=== PATIENT | female | born 1985 | race Two or more races ===

== ENCOUNTER 2018-09-07 03:31 | Emergency (ER) | payer MEDICAID ==
[~2018-09-07] VITALS: Ht 157.5 cm; Wt 72.6 kg
--- NOTE | 2018-09-07 03:50 | Emergency Room Report ---
History of Present Illness General Chief Complaint: Female Urogenital Problems Present Illness HPI Patient is a 32-year-old female presented after increased dysuria and urgency of urination. Patient reports having prior history of rheumatoid arthritis. She reports having increased burning sensation which appears. She denies any fever. She had denies any the diarrhea. She reports having some suprapubic abdominal pain. The patient said she is taking methotrexate for rheumatoid arthritis. She reports having previously normal blood counts. Allergies: Coded Allergies: PENICILLINS (Verified Adverse Reaction, Severe, Shortness of Breath, 09/07) Patient History Past Medical History: see triage record Last Menstrual Period: 08/23/18 Now: No : 2 Para: 2 Reviewed Nursing Documentation: PMH: Agreed; PSxH: Agreed Review of Systems All Other Systems: negative except mentioned in HPI Physical Exam Vital Signs Date Time Temp Pulse Resp B/P (MAP) Pulse Ox O2 Delivery O2 Flow Rate FiO2 09/07/18 03:37 97.3 58 16 117/73 100 Room Air General Appearance: well appearing, no apparent distress, alert, GCS 15 Head: normocephalic, atraumatic ENT: hearing grossly normal, normal voice Neck: full range of motion, supple Respiratory: no respiratory distress, speaking full sentences Cardiovascular #1: normal peripheral pulses, regular rate, rhythm, no edema Gastrointestinal: normal inspection, soft Genitourinary: no CVA tenderness Musculoskeletal: normal inspection, back normal, no calf tenderness Neurologic: normal inspection, alert, oriented x3, responsive, digital forensics investigator III-XII nml as tested, normal gait Psychiatric: mood/affect normal Skin: no rash Medical Decision Making Diagnostic Impression: Primary Impression: Urinary tract infection ER Course Patient presented for dysuria. Differential diagnosis included was not limited to appendicitis, urinary tract infection, pelvic inflammatory disease, urethritis, herpes among others. Patient has a benign exam and does not appear to require any further imaging or laboratory testing at this timeThe urinalysis showed evidence of urinary tract infection. Patient was given the first dose of oral antibiotics. The patient was given prescription for Macrobid as well as Pyridium. The patient is advised to have a recurrent urinary checked primary care physician P she is advised to return if she began having high fever persistent vomiting or other concerns. Labs Test 09/07/18 04:00 Urine Color Pale yellow Urine Appearance Cloudy Urine pH 6.5 (4.5-8.0) Urine Specific [place] 1.010 (1.005-1.035) Urine Protein 2+ (NEGATIVE) Urine Glucose (UA) Negative (NEGATIVE) Urine Ketones Negative (NEGATIVE) Urine Blood 5+ (NEGATIVE) Urine Nitrite Negative (NEGATIVE) Urine Bilirubin Negative (NEGATIVE) Urine Urobilinogen Normal MG/DL (0.0-1.0) Urine Leukocyte Esterase 3+ (NEGATIVE) Urine RBC Tntc /HPF (0 - 2) Urine WBC Tntc /HPF (0 - 2) Urine Squamous Epithelial Cells Few /LPF (NONE/OCC) Urine Bacteria Many /HPF (NONE) Urine HCG, Qualitative Negative (NEGATIVE) Last Vital Signs Date Time Temp Pulse Resp B/P (MAP) Pulse Ox O2 Delivery O2 Flow Rate FiO2 09/07/18 03:37 97.3 58 16 117/73 100 Room Air Status: improved Disposition: HOME, SELF-CARE Condition: Stable Scripts Phenazopyridine Hcl* (PYRIDIUM*) 200 Mg Tablet 200 MG ORAL THREE TIMES A DAY, #14 TAB 0 Refills Prov: Rc Victor MD 09/07/18 Ondansetron (Zofran) 4 Mg Tablet 4 MG ORAL Q6H PRN for Nausea & Vomiting, #20 TAB 0 Refills Prov: Rc Victor MD 09/07/18 Nitrofurantoin Monohyd/M-Cryst* (MACROBID 100 MG*) 100 Mg Capsule 100 MG ORAL EVERY 12 HOURS, #14 CAP Prov: Rc Victor MD 09/07/18 Rc Victor MD Sep 07, 2018 03:49
[2018-09-07] MEDS ORDERED: ZOFRAN4 MG ORAL (03:52)
[2018-09-07] MEDS ORDERED: NITROFURANTOIN100 M2 ORAL (03:52)
[2018-09-07] MEDS ORDERED: PHENAZOPYRIDIN200 MG ORAL (03:52)
[2018-09-07 04:03] LABS: BILIRUBIN, URINE NEGATIVE (NEGATIVE); COLOR,URINE PALE YELLOW; GLUCOSE, URINE (UA) NEGATIVE (NEGATIVE); KETONES,URINE NEGATIVE (NEGATIVE); LEUKOCYTE ESTERASE ,URINE 3+ (NEGATIVE); NITRITE,URINE NEGATIVE (NEGATIVE); PH,URINE 6.5 (4.5-8.0); PROTEIN,URINE 2+ (NEGATIVE); UROBILINOGEN,URINE NORMAL MG/DL (0.0-1.0)
[2018-09-07 04:08] LABS: APPEARANCE,URINE CLOUDY
[2018-09-07 04:31] VITALS: BP 117/75
== END 2018-09-07 04:30 | disposition home or self-care (01) ==
LOC: EMR 03:53
DX: N39.0 Urinary tract infection, site not specified (principal); Z88.0 Allergy status to penicillin
CPT/HCPCS: 81003; 81025; 87086; 87181; 99283